=== PATIENT | male | born 1980 | race African-American/Black ===

== ENCOUNTER 2022-03-16 15:20 | Emergency (ER) | payer BC, OTHER ==
[2022-03-16 15:45] VITALS: BP 126/99; PULSE 87; RESP 16; TEMP 99.2; BMI 36.6
[2022-03-16] MEDS ORDERED: TETRACAINE 0.5% OPHTH SOLN 2 ML BOTTLE ONE (15:54)
[2022-03-16] MEDS ORDERED: FLUORESCEIN NA 1 EA STRIP ONE (15:54)
== END 2022-03-16 16:46 | disposition home or self-care (01) ==
LOC: FER 15:20
DX: H01.001 Unspecified blepharitis right upper eyelid (principal); M54.50 Low back pain, unspecified
CPT/HCPCS: 99283-25

== ENCOUNTER 2022-03-31 12:16 | Emergency (ER) | payer OTHER ==
[2022-03-31 12:36] VITALS: BP 153/107; PULSE 84; RESP 16; TEMP 98.8; BMI 38.2
[2022-03-31 14:13] LABS: HEMOGLOBIN 14.8 G/dL (11.7-16.9); MCH 31.8 pg (25.7-33.7); MCHC 35.1 g/dl (32.0-35.9); MEAN CELL VOLUME 90.5 fl (80-96); MEAN PLT VOLUME 8.8 fl (7.5-11.1); PLATELET COUNT 296.3 10^3/uL (134-434); RBC 4.64 10^6/uL (4.00-5.60); RDW 14.3 % (11.9-15.9); WHITE BLOOD COUNT 7.4 10^3/uL (4.0-10.8)
[2022-03-31 14:18] LABS: PLATELET ESTIMATE ADEQUATE
[2022-03-31 14:19] LABS: ALBUMIN 4.2 g/dl (3.4-5.0); BILIRUBIN,TOTAL 1.1 mg/dl (0.2-1); CALCIUM 9.5 mg/dl (8.5-10); CREATININE 0.8 mg/dl (0.55-1.3); TOT PROT 7.8 g/dl (6.4-8.2)
== END 2022-03-31 14:59 | disposition home or self-care (01) ==
LOC: FER 12:16
DX: M60.9 Myositis, unspecified (principal)
CPT/HCPCS: 36415; 80053; 81003; 82550; 82553; 85027; 85651; 99283-25